=== PATIENT | female | born 1985 | race Caucasian/White ===

== ENCOUNTER → 2019-10-12 | Outpatient (CLI) | payer OTHER ==
[~2019-10-12] MED LIST: ACET500C PO; ANUS2.5C2 EXT; DOCU5LIQ PO; IBUP600T26 PO; IBUP80TA PO; MAPA500T17 PO; MILK10SU PO; PRENTAB9 PO; TUMS500C PO; VITAD1000T FT
[2019-10-12 14:17] LABS: HEMATOCRIT 35.6 % (36.0-47.0); HEMOGLOBIN 12.2 g/dl (12.0-15.5); MEAN CORPUSCULAR HEMOGLOBIN 28.8 pg (27.0-33.0); MEAN CORPUSCULAR HGB CONC 34.3 g/dl (32.0-36.5); PLATELET COUNT, AUTOMATED 335 10^3/uL (150-450); RED BLOOD COUNT 4.24 10^6/uL (4.00-5.40); WHITE BLOOD COUNT 11.6 10^3/uL (4.0-10.0)
[2019-10-12 15:43] LABS: CHLAMYDIA DNA AMPLIFICATION NEGATIVE (NEGATIVE); GC DNA AMPLIFICATION NEGATIVE (NEGATIVE)
[2019-10-14 10:08] LABS: HEPATITIS B SURFACE ANTIGEN NEGATIVE (NEGATIVE); HEPATITIS C VIRUS ABY INDEX 0.2 INDEX (<0.8); HIV 1&2 SCREEN CENTAUR NEGATIVE (NEGATIVE); RUBELLA IgG QUALITATIVE IMMUNE (IMMUNE)
== END ==
LOC: M LAB 13:48
PROVIDERS: ATTEND Advanced Practice Midwife
DX: Z34.81 Encounter for supervision of other normal pregnancy, first trimester (principal); Z3A.11 11 weeks gestation of pregnancy

== ENCOUNTER → 2019-11-09 | Outpatient (CLI) | payer OTHER ==
--- NOTE | 2019-11-10 04:59 | REP ---
Clinical: Anatomical evaluation. Comparison: None . Findings: Examination demonstrates a single live intrauterine in transverse (head to maternal left) presentation. motion is identified by technologist. Placenta is noted anterior and grade I without evidence for placenta previa or abruption. Amniotic fluid volume is normal. Cervix measures 4.3 cm in length and appears closed. No evidence for nuchal cord. Gestational age by current measurements 18 weeks 4 days with CAROLINE 04/07/2020 . FHR equals 140 beats per minute. BPD 4.4 cm 19 weeks 2 days HC 15.8 cm 18 weeks 5 days AC 13.4 cm 18 weeks 6 days FL 2.7 cm 18 weeks 2 days HL 2.6 and 18 weeks 2 days HC/AC ratio 1.18 Estimated weight 248 grams ( 46th percentile). Anatomical assessment demonstrates normal structures including cranium, choroid plexus, cavum, cerebellum/posterior fossa, facial features, lungs, four-chamber heart/ventricular outflow tracts, diaphragm, stomach, cord insertion/three-vessel cord, kidneys/bladder, spine, and extremities. Impression: Single live intrauterine in transverse lie demonstrating appropriate estimated weight. Anatomical assessment is complete and normal.
== END ==
LOC: M WHC 09:58
PROVIDERS: ATTEND Advanced Practice Midwife
DX: Z34.82 Encounter for supervision of other normal pregnancy, second trimester (principal)

== ENCOUNTER → 2020-01-05 | Outpatient (REF) | payer OTHER ==
[2020-01-05 13:37] LABS: HEMATOCRIT 39.1 % (36.0-47.0); HEMOGLOBIN 12.8 g/dl (12.0-15.5); MEAN CORPUSCULAR HGB CONC 32.7 g/dl (32.0-36.5); MEAN CORPUSCULAR VOLUME 88.5 fl (80.0-96.0); PLATELET COUNT, AUTOMATED 439 10^3/uL (150-450); RED BLOOD COUNT 4.42 10^6/uL (4.00-5.40); WHITE BLOOD COUNT 13.6 10^3/uL (4.0-10.0)
== END ==
LOC: M PLALAB 08:27
PROVIDERS: ATTEND Advanced Practice Midwife
DX: Z34.92 Encounter for supervision of normal pregnancy, unspecified, second trimester (principal); Z3A.00 Weeks of gestation of pregnancy not specified

== ENCOUNTER → 2020-02-02 | Outpatient (CLI) | payer OTHER | LOC: M PLALAB 12:18 | PROVIDERS: ATTEND Advanced Practice Midwife | DX: Z34.92 Encounter for supervision of normal pregnancy, unspecified, second trimester (principal); Z36.89 Encounter for other specified antenatal screening ==

== ENCOUNTER → 2020-03-08 | Outpatient (REF) | payer OTHER | LOC: M SFHCWAGY 18:14 | PROVIDERS: ATTEND Advanced Practice Midwife | DX: Z34.83 Encounter for supervision of other normal pregnancy, third trimester (principal) ==

== ENCOUNTER 2020-04-15 15:55 | Inpatient (IN) | payer OTHER ==
[~2020-04-15] VITALS: Ht 162.6 cm; Wt 92.0 kg
[2020-04-15] VITALS (8 sets, daily range): BP systolic 111–158; BP diastolic 55–81
[2020-04-15 17:00] LABS: HEMATOCRIT 39.6 % (36.0-47.0); HEMOGLOBIN 13.1 g/dl (12.0-15.5); MEAN CORPUSCULAR HEMOGLOBIN 27.8 pg (27.0-33.0); MEAN CORPUSCULAR HGB CONC 33.1 g/dl (32.0-36.5); MEAN CORPUSCULAR VOLUME 84.1 fl (80.0-96.0); PLATELET COUNT, AUTOMATED 302 10^3/uL (150-450); RED BLOOD COUNT 4.71 10^6/uL (4.00-5.40); WHITE BLOOD COUNT 14.8 10^3/uL (4.0-10.0)
[2020-04-15] MEDS ORDERED: OXYTOCIN 30 UNITS IN 0.9% NaCl 500ML IV BAG (J2590) As Ordered ONE (17:06)
[2020-04-15] MEDS ORDERED: OXYTOCIN DRIP 30 UNITS in IV 1 EA IV SCH (19:07)
[2020-04-15] MEDS ORDERED: MEASLES,MUMPS,RUBELLA VACCINE INJ (MMR-II) (90707) SC SCH (19:15)
[2020-04-15] MEDS ORDERED: DIBUCAINE 1% OINTMENT 30GM TOP PRN (19:15)
[2020-04-15] MEDS ORDERED: ACETAMINOPHEN 500 MG TAB PO PRN (19:15)
[2020-04-15] MEDS ORDERED: IBUPROFEN 800 MG TAB PO PRN (19:15)
[2020-04-15] MEDS ORDERED: IBUPROFEN 600MG TAB PO PRN (19:15)
[2020-04-15] MEDS ORDERED: ACETAMINOPHEN TAB 650MG DOSE (2X325MG) PO PRN (19:15)
[2020-04-15] MEDS ORDERED: DOCUSATE SODIUM 100 MG CAP PO PRN (19:15)
[2020-04-15] MEDS ORDERED: LIDOCAINE 1% MDV 20ML VIAL INFIL ONE (19:15)
[2020-04-15] MEDS ORDERED: RHOGAM 300 MCG (1500 IU) INJ (J2790) IM SCH (19:15)
[2020-04-15] MEDS ORDERED: METHYLERGONOVINE MALEATE 0.2 MG TAB PO PRN (19:15)
--- NOTE | 2020-04-15 23:10 | HPE ---
DATE OF ADMISSION: 04/15/2020 Maria Esther is a 34-year-old 4, para 2-0-1-2 at 41 weeks gestation, EDC of 04/08/2020 based on last menstrual period ad confirmed by first trimester ultrasound. She presents to labor and delivery today with report of uncomfortable contractions that became more uncomfortable at approximately 1400 hours. She denies vaginal bleeding and leakage of fluid. The fetus has been active. care was initiated at [facility] in the first trimester. course has been uncomplicated. OBSTETRICAL HISTORY: 1. December 2012, 41 weeks 4 days, 6 pounds 10 ounces female vaginal delivery. No complications. 2. February 2014, 8 weeks gestation with a miscarriage and a D and C. 3. August 2015, 41 weeks 2 days, 7 pounds 11 ounces female vaginal delivery. OBSTETRIC LABORATORIES: A negative, antibody screen negative, syphilis negative, gonorrhea and chlamydia negative. Hepatitis B surface antigen negative, HIV negative. Hepatitis C antibody nonreactive, rubella immune. Gestational diabetic screening normal at 57. GBS is negative. Urine culture showed no growth. PAST MEDICAL HISTORY: Noncontributory. SURGERIES: None. FAMILY HISTORY: Noncontributory. SOCIAL HISTORY: Nonsmoker. Denies alcohol and drug use. No history of any sexually transmitted infections. She denies history of abuse physical, sexual and emotional. The patient is single and employed as a restaurant line server. ALLERGIES: AMOXICILLIN, PENICILLIN. CURRENT MEDICATIONS: - vitamins OBJECTIVE: Temperature not taken, pulse 93, blood pressure is 130/73. She is alert and oriented times three. She does appear uncomfortable with her contractions. heart rate is 130 with moderate variability, positive accelerations, negative decelerations. Contractions appear to be about every 3 minutes, they do palpate moderate. Her abdomen is gravid, cephalic presentation. Estimated weight 8 pounds. Sterile vaginal exam: 4-5 cm dilated, 100% effaced, 0 station, membranes are intact. ASSESSMENT: Intrauterine at 41 weeks. heart rate category one. Active labor. PLAN: Admit the patient to labor and delivery. Out of bed ad neena. Saline lock at this time. Routine laboratories. The patient is planning to cope with her labor physiologically. Once she is admitted to labor and delivery, I will plan assisted rupture of membranes for labor augmentation. I do anticipate continued labor progress and a spontaneous vaginal delivery.
[2020-04-16 06:00] VITALS: BP 114/59
--- NOTE | 2020-04-16 06:27 | DN ---
DATE: 04/15/2020 Maria Esther is a 34-year-old, 4, para 3-0-1-3 now, who is admitted to labor and delivery in active labor. She coped with her labor physiologically under her own torres. She had assisted rupture of membranes for a scant amount of clear fluid at 1735. She reached complete dilation at 1825. She pushed to a normal spontaneous vaginal delivery of a live male in right occiput anterior (IRENE) position with restitution to right occiput transverse (ROT) position at 1840. There was no nuchal cord. The shoulders delivered spontaneously and the corpus immediately followed. The male was placed on the maternal abdomen crying and active. His mouth and nares were bulb suctioned. Cord was clamped x2 and cut by the father of the baby once pulsations ceased under my direction. Spontaneous expulsion of an intact placenta with three-vessel cord by Simms mechanism at 1848. Uterine hemostasis achieved with IV Pitocin rapid infusion and uterine fundal massage. Estimated blood loss 250 mL. Perineum and vagina were inspected and noted to have a first-degree midline laceration. The laceration was infiltrated with 1% lidocaine and repaired with #3-0 Vicryl Rapide in the usual fashion. The male weighed 3450 grams, 7 pounds 10 ounces, and Apgars 9 and 9. The family have named him Shaheen and the mom is going to breastfeed her son. At the close of delivery, lap counts, needle counts and instrument counts were correct and verified.
[2020-04-16] MEDS: PRENATAL VITAMINS CHEWABLE TABLET PO SCH (07:27)
[2020-04-16 07:30] VITALS: BP 114/59
[2020-04-16 17:27] VITALS: BP 121/64
[2020-04-17 06:00] VITALS: BP_SYST 106; BP_SYST 109; BP_DIAS 52; BP_DIAS 58
[2020-04-17 07:41] VITALS: BP 106/52
[2020-04-17] MEDS: PRENATAL VITAMINS CHEWABLE TABLET PO SCH (07:48)
[2020-04-17] MEDS ORDERED: IBUP80TA PO (10:41)
== END 2020-04-17 11:35 | disposition home or self-care (01) | DRG 560 ==
LOC: M LDO 15:55 → M LDI 16:12 → M OBS 20:38
PROVIDERS: ADMIT Advanced Practice Midwife; ATTEND Advanced Practice Midwife
PROC: 10E0XZZ Delivery of Products of Conception, External Approach (ICD-10-PCS; principal; 2020-04-15)
PROC: 0HQ9XZZ Repair Perineum Skin, External Approach (ICD-10-PCS; 2020-04-15)
DX: O48.0 Post-term pregnancy (principal); O70.0 First degree perineal laceration during delivery; Z37.0 Single live birth; Z3A.41 41 weeks gestation of pregnancy

== ENCOUNTER → 2021-02-01 | Outpatient (REF) | payer OTHER | LOC: M SFHCWAGY 10:25 | PROVIDERS: ATTEND Advanced Practice Midwife | DX: Z12.4 Encounter for screening for malignant neoplasm of cervix (principal); N76.0 Acute vaginitis ==

== ENCOUNTER → 2021-03-20 | Outpatient (CLI) | payer OTHER ==
[2021-03-20 16:05] LABS: BASO # 0.1 10^3/uL (0.0-0.2); BASO % 0.6 % (0.0-1.0); EOS # 0.3 10^3/uL (0.0-0.5); HEMOGLOBIN 13.4 g/dl (12.0-15.5); LYMPH # 3.3 10^3/uL (1.5-5.0); LYMPH % 37.2 % (24.0-44.0); MEAN CORPUSCULAR HEMOGLOBIN 27.3 pg (27.0-33.0); MEAN CORPUSCULAR HGB CONC 31.9 g/dl (32.0-36.5); MEAN CORPUSCULAR VOLUME 85.7 fl (80.0-96.0); MONO # 0.6 10^3/uL (0.0-0.8); MONO % 6.4 % (2.0-8.0); NEUTROPHILS # 4.7 10^3/uL (1.5-8.5); NEUTROPHILS % 52.7 % (36.0-66.0); PLATELET COUNT, AUTOMATED 403 10^3/uL (150-450); WHITE BLOOD COUNT 8.8 10^3/uL (4.0-10.0)
[2021-03-20 16:26] LABS: ERYTHROCYTE SEDIMENTATION RATE 3 mm/hr (0-20)
[2021-03-20 19:30] LABS: C REACTIVE PROTEIN QUANTITATIV < 0.30 MG/DL (0.00-0.30); RHEUMATOID FACTOR QUANT < 10.0 IU/ML (<15.0)
== END ==
LOC: M WUC 13:20
DX: M25.562 Pain in left knee (principal)

== ENCOUNTER → 2021-11-20 | Outpatient (CLI) | payer OTHER ==
[2021-11-20 12:24] LABS: HEMOGLOBIN 12.5 g/dl (12.0-15.5); MEAN CORPUSCULAR HGB CONC 32.9 g/dl (32.0-36.5); MEAN CORPUSCULAR VOLUME 85.2 fl (80.0-96.0); PLATELET COUNT, AUTOMATED 362 10^3/uL (150-450); RED BLOOD COUNT 4.46 10^6/uL (4.00-5.40); WHITE BLOOD COUNT 12.6 10^3/uL (4.0-10.0)
[2021-11-20 13:40] LABS: HEPATITIS C VIRUS ABY INDEX 0.1 INDEX (<0.8); HIV 1&2 SCREEN CENTAUR NEGATIVE (NEGATIVE)
[2021-11-20 13:59] LABS: GC DNA AMPLIFICATION NEGATIVE (NEGATIVE)
== END ==
LOC: M WUC 09:49
PROVIDERS: ATTEND Advanced Practice Midwife
DX: O09.529 Supervision of elderly multigravida, unspecified trimester (principal); Z3A.00 Weeks of gestation of pregnancy not specified

== ENCOUNTER → 2021-12-20 | Outpatient (CLI) | payer OTHER | LOC: M WHC 14:29 | PROVIDERS: ATTEND Advanced Practice Midwife | DX: Z34.92 Encounter for supervision of normal pregnancy, unspecified, second trimester (principal); Z3A.19 19 weeks gestation of pregnancy ==

== ENCOUNTER → 2022-01-13 | Outpatient (CLI) | payer OTHER | LOC: M WHC 10:45 | PROVIDERS: ATTEND Advanced Practice Midwife | DX: Z34.82 Encounter for supervision of other normal pregnancy, second trimester (principal) ==

== ENCOUNTER → 2022-02-25 | Outpatient (CLI) | payer OTHER ==
[2022-02-25 10:54] LABS: HEMATOCRIT 36.6 % (36.0-47.0); MEAN CORPUSCULAR HEMOGLOBIN 29.1 pg (27.0-33.0); MEAN CORPUSCULAR HGB CONC 32.8 g/dl (32.0-36.5); MEAN CORPUSCULAR VOLUME 88.6 fl (80.0-96.0); PLATELET COUNT, AUTOMATED 309 10^3/uL (150-450); RED BLOOD COUNT 4.13 10^6/uL (4.00-5.40); WHITE BLOOD COUNT 14.2 10^3/uL (4.0-10.0)
== END ==
LOC: M PLALAB 08:16
PROVIDERS: ATTEND Advanced Practice Midwife
DX: Z34.92 Encounter for supervision of normal pregnancy, unspecified, second trimester (principal)

== ENCOUNTER → 2022-04-21 | Outpatient (REF) | payer OTHER | LOC: M PLALAB 08:30 | PROVIDERS: ATTEND Advanced Practice Midwife | DX: Z34.93 Encounter for supervision of normal pregnancy, unspecified, third trimester (principal) ==